=== PATIENT | female | born 1960 | race American Indian/Alaskan Native ===

== ENCOUNTER 2019-10-07 23:28 | Emergency (ER) | payer OTHER ==
[2019-10-08] MEDS ORDERED: LIDOCAINE (1%) 10 MG/1 ML VIAL 20 ML MDV INFILTRATI ONE (01:26)
[2019-10-08] MEDS ORDERED: IBUPROFEN 600 MG TAB PO ONE (01:26)
[2019-10-08] MEDS ORDERED: ACETAMINOPHEN 500 MG TAB PO ONE (01:26)
[2019-10-08] MEDS ORDERED: DIPHtheria,PERTUSSIS(ACELL),TETANUS VACCINE/PF 0.5 ML VIAL IM ONE (01:26)
--- NOTE | 2019-10-08 04:38 | Emergency Department Report ---
ED Animal Bite HPI - General Chief Complaint: Animal Bite Stated Complaint: ANIMAL BITE TO BACK RIGHT LEG Source: patient, EMS Mode of arrival: Stretcher Limitations: No Limitations - History of Present Illness Initial Comments: Patient is a 59-year-old -[place] female with a history of seizures who presents to the ED with complaint of acute onset persistent painful bleeding extensive laceration on posterior right lower leg after being bitten by her own dog about 1 hour ago. Patient states that the dog attacked her while she was standing next to the dog and bit her on the right lower leg. Patient states that the dog is fully vaccinated but states that she personally has not had tetanus vaccination in many years. Patient denies numbness and tingling or weakness of lower extremities bilaterally, fall, nausea, vomiting, chest pain, shortness of breath, neck pain, dizziness, syncope or back pain. MD Complaint: animal bite, animal-related injury (right lower leg puncture wounds and lacerations) -: Sudden, hour(s) (1) Location: other (right lower leg) Right: Leg (posterior right lower leg) Animal: dog Animal Control Notified: Yes Description: household pet, immunizations UTD Mechanism: bite, contact with mucous membr Pain Description: sharp, constant Severity scale (0 -10): 8 Context: unprovoked Associated Symptoms: bleeding. denies: erythema, discharge from wound, fever, chills, rash, loss of consciousness, cough, headache, diaphoresis, shortness of breath Treatments Prior to Arrival: wound dressing(s) - Related Data Patient Tetanus UTD: No (Given during this visit) Previous Rx's Medication Instructions Recorded Last Taken Type Amoxicillin/Potassium Clav 1 each PO Q12H #20 tablet 10/08/19 Unknown Rx [Augmentin 875-125 Tablet] Ibuprofen [Motrin] 600 mg PO Q8H PRN #24 tablet 10/08/19 Unknown Rx Allergies Allergy/AdvReac Type Severity Reaction Status Date / Time No Known Allergies Allergy Unverified 10/08/19 00:41 ED Review of Systems ROS: Stated complaint: ANIMAL BITE TO BACK RIGHT LEG Other details as noted in HPI Constitutional: denies: chills, fever Eyes: denies: eye pain, eye discharge, vision change ENT: denies: ear pain, throat pain Respiratory: denies: cough, shortness of breath, wheezing Cardiovascular: denies: chest pain, palpitations Endocrine: no symptoms reported Gastrointestinal: denies: abdominal pain, nausea, diarrhea Genitourinary: denies: urgency, dysuria, discharge Musculoskeletal: arthralgia (Posterior right lower leg pain due to a bleeding extensive puncture wound and laceration). denies: back pain, joint swelling Skin: other (Bleeding extensive puncture wound and laceration on right lower leg). denies: rash, lesions Neurological: denies: headache, weakness, paresthesias Psychiatric: denies: anxiety, depression Hematological/Lymphatic: denies: easy bleeding, easy bruising ED Past Medical Hx - Past Medical History Previous Medical History?: Yes Hx Seizures: Yes - Surgical History Past Surgical History?: No - Social History Smoking Status: Never Smoker Substance Use Type: None - Medications Home Medications: Home Medications Medication Instructions Recorded Confirmed Last Taken Type Amoxicillin/Potassium Clav 1 each PO Q12H #20 tablet 10/08/19 Unknown Rx [Augmentin 875-125 Tablet] Ibuprofen [Motrin] 600 mg PO Q8H PRN #24 tablet 10/08/19 Unknown Rx ED Physical Exam - General Limitations: No Limitations General appearance: alert, in no apparent distress - Head Head exam: Present: atraumatic, normocephalic - Eye Eye exam: Present: normal appearance, PERRL, EOMI Pupils: Present: normal accommodation - ENT ENT exam: Present: normal exam, normal orophraynx, mucous membranes moist, TM's normal bilaterally, normal external ear exam - Neck Neck exam: Present: normal inspection, full ROM - Respiratory Respiratory exam: Present: normal lung sounds bilaterally. Absent: respiratory distress, wheezes, rhonchi, chest wall tenderness - Cardiovascular Cardiovascular Exam: Present: regular rate, normal rhythm, normal heart sounds. Absent: systolic murmur, diastolic murmur, rubs, gallop - GI/Abdominal GI/Abdominal exam: Present: soft, normal bowel sounds. Absent: tenderness, guarding, rebound, hyperactive bowel sounds, hypoactive bowel sounds, mass - Extremities Exam Extremities exam: Present: normal inspection, full ROM, tenderness (Palpable posterior right lower leg tenderness due to a bleeding 5 cm laceration and 3 cm puncture wound), normal capillary refill - Back Exam Back exam: Present: normal inspection, full ROM. Absent: tenderness, muscle spasm, paraspinal tenderness, vertebral tenderness - Neurological Exam Neurological exam: Present: alert, oriented X3, CN II-XII intact, normal gait, reflexes normal - Psychiatric Psychiatric exam: Present: normal affect, normal mood - Skin Skin exam: Present: warm, dry, intact, normal color, other (Bleeding 5 cm laceration and 3 cm puncture wound on posterior right lower leg). Absent: rash ED Course Vital Signs 10/08/19 10/08/19 10/08/19 00:34 01:56 01:57 Temperature 98.1 F Pulse Rate 65 Respiratory 18 18 18 Rate Blood Pressure 132/86 O2 Sat by Pulse 100 Oximetry - Laceration /Wound Repair Right Calf Wound Location: lower extremity (Posterior right lower leg) Wound Length (cm): 5 Wound's Depth, Shape: into muscle, irregular, flap Wound Explored: contaminated Irrigated w/ Saline (ccs): 100 Betadine Prep?: Yes Anesthesia: 1% Lidocaine Volume Anesthetic (ccs): 10 Wound Debrided: extensive Wound Repaired With: sutures Suture Size/Type: 3:0, proline Number of Sutures: 11 Layer Closure?: No Sterile Dressing Applied?: Yes Progress: Patient tolerated the procedure well. The wound was sutured per protocol and the wound cleaned thoroughly. The wound was then dressed appropriately. Patient was discharged home on antibiotics and pain medications and advised to return to the ED immediately if symptoms get worse, otherwise follow-up with the primary care physician in 7 to 10 days for reevaluation. Patient was also advised return to the ED in 12 to 14 days for suture removal. Right Lower Leg Wound Location: lower extremity (posterior right lower leg) Wound Length (cm): 3 Wound's Depth, Shape: superficial, irregular Wound Explored: contaminated Irrigated w/ Saline (ccs): 50 Betadine Prep?: Yes Anesthesia: 1% Lidocaine Volume Anesthetic (ccs): 5 Wound Debrided: extensive Wound Repaired With: sutures Suture Size/Type: 3:0, proline Number of Sutures: 4 Layer Closure?: No Sterile Dressing Applied?: Yes Progress: Patient tolerated procedure well. Critical care attestation.: If time is entered above; I have spent that time in minutes in the direct care of this critically ill patient, excluding procedure time. ED Disposition Clinical Impression: Dog bite of right calf Qualifiers: Encounter type: initial encounter Qualified Code(s): S81.851A - Open bite, right lower leg, initial encounter; W54.0XXA - Bitten by dog, initial encounter Laceration of right lower leg Qualifiers: Encounter type: initial encounter Qualified Code(s): S81.811A - Laceration without foreign body, right lower leg, initial encounter Disposition: TO HOME OR SELFCARE Is pt being admited?: No Does the pt Need Aspirin: No Condition: Stable Instructions: Animal Bite (ED), Puncture Wound (ED), Laceration (ED) Additional Instructions: Take medication with food, drink plenty of fluids and follow-up with your primary care physician in 7 to 10 days for reevaluation. Return to the ED immediately if your symptoms get worse. Otherwise return to the ED or to your primary care physician in 12 to 14 days for suture removal. Prescriptions: Amoxicillin/Potassium Clav [Augmentin 875-125 Tablet] 1 each PO Q12H #20 tablet Ibuprofen [Motrin] 600 mg PO Q8H PRN #24 tablet PRN Reason: Pain Referrals: PRIMARY CARE, [Primary Care Provider] - 3-5 Days [facility] [Provider Group] - 3-5 Days Time of Disposition: 04:41 Print Language: [place]
[2019-10-08] MEDS ORDERED: AMOXICILLIN/K CLAV 875/125MG TAB PO ONE (04:42)
[2019-10-08 04:49] VITALS: BP 132/57
== END 2019-10-08 04:58 | disposition home or self-care (01) ==
LOC: ED 23:28
DX: S81.851A Open bite, right lower leg, initial encounter (principal); S81.811A Laceration without foreign body, right lower leg, initial encounter; W54.0XXA Bitten by dog, initial encounter; Y93.89 Activity, other specified; Y92.89 Other specified places as the place of occurrence of the external cause; Y99.8 Other external cause status
CPT/HCPCS: 90471; 90715